=== PATIENT | female | born 1955 | race Caucasian/White ===

== ENCOUNTER → 2017-03-28 | Outpatient (CLI) | payer OTHER ==
[~2017-03-28] MED LIST: ACET-1256 PO; ACET1TAB84 PO; AMOXPOW3; ATEN-173 PO; DIPH-437 PO; ESTRING; MULT-506 PO; SIMV10TA2 PO
--- NOTE | 2017-03-28 16:42 | MAMMOGRAPHY REPORT ---
BILATERAL DIGITAL SCREENING MAMMOGRAM WITH CAD: 03/28/2017 CLINICAL HISTORY: Routine screening. Patient has no complaints. TECHNIQUE: Current study was also evaluated with a Computer Aided Detection (CAD) system. Bilatera l CC and MLO views were obtained. COMPARISON: Comparison is made to exams dated: 03/22/2016 mammogram, 03/17/2015 mammogram, 03/15/2014 ma mmogram, 03/09/2013 mammogram, 03/03/2012 mammogram, and 02/28/2011 mammogram - [facility] enter. BREAST COMPOSITION: The tissue of both breasts is heterogeneously dense, which may obscure small ma sses. FINDINGS: No suspicious masses, calcifications, or areas of architectural distortion are noted in e ither breast. There has been no significant interval change compared to prior exams. Patchy bilater al asymmetries and scattered bilateral benign calcifications are not significantly changed. IMPRESSION: ACR BI-RADS CATEGORY 2: BENIGN There is no mammographic evidence of malignancy. A 1 year screening mammogram is recommended. The p atient will receive written notification of the results. Approximately 10% of breast cancers are not detected with mammography. A negative mammographic repor t should not delay biopsy if a clinically suggestive mass is present. Hue Rosenthal M.D. /:03/28/2017 16:20:28 Hand Leather Trimmer: Funmilayo LOYOLA)(Evelia), [facility] letter sent: Normal 1/2 BI-RADS Code: ACR BI-RADS Category 2: Benign
== END | disposition home or self-care (01) ==
LOC: C.MAMM 09:48
PROVIDERS: ATTEND Obstetrics & Gynecology
DX: Z12.31 Encounter for screening mammogram for malignant neoplasm of breast (principal)

== ENCOUNTER → 2017-05-06 | Outpatient (CLI) | payer OTHER | END | disposition home or self-care (01) | LOC: C.LABPVFM 10:35 | PROVIDERS: ATTEND Family Medicine | DX: N39.0 Urinary tract infection, site not specified (principal) ==

== ENCOUNTER → 2017-06-11 | Outpatient (CLI) | payer OTHER | END | disposition home or self-care (01) | LOC: C.LABPVFM 11:08 | PROVIDERS: ATTEND Nurse Practitioner | DX: N39.0 Urinary tract infection, site not specified (principal) ==

== ENCOUNTER → 2017-09-26 | Outpatient (CLI) | payer OTHER ==
[2017-09-26 13:22] LABS: ALT/SGPT 36 U/L (12-78); AST/SGOT 26 U/L (15-37); BLOOD UREA NITROGEN 12 mg/dl (7-18); BUN/CREATININE RATIO 15.2 (10-20); CALCIUM 9.1 mg/dl (8.5-10.1); CARBON DIOXIDE 24 mmol/L (21-32); CHLORIDE 109 mmol/L (98-107); CREATININE 0.79 mg/dl (0.60-1.20); GLUCOSE 96 mg/dl (70-99); SODIUM 142 mmol/L (136-145)
[2017-09-26 13:33] LABS: ALKALINE PHOSPHATASE 103 U/L (45-117); CHOLESTEROL 165 mg/dl (0-200); CHOLESTEROL/HDL RATIO 3.6; HDL CHOLESTEROL 46 mg/dl; LDL CHOLESTEROL CALCULATED 74 mg/dl; THYROID STIMULATING HORMONE 0.604 uIu/ml (0.300-4.500); TRIGLYCERIDES 227 mg/dl (0-150); VERY LOW DENSITY LIPOPROT CALC 45 mg/dl
== END | disposition home or self-care (01) ==
LOC: C.LABPVFM 08:24
PROVIDERS: ATTEND Family Medicine
DX: I10 Essential (primary) hypertension (principal); Z13.29 Encounter for screening for other suspected endocrine disorder; E78.5 Hyperlipidemia, unspecified

== ENCOUNTER → 2018-04-03 | Outpatient (CLI) | payer OTHER ==
--- NOTE | 2018-04-06 15:09 | MAMMOGRAPHY REPORT ---
BILATERAL DIGITAL SCREENING MAMMOGRAM TOMOSYNTHESIS WITH CAD: 04/03/2018 CLINICAL HISTORY: Routine screening. Patient has no complaints. TECHNIQUE: Breast tomosynthesis in addition to standard 2D mammography was performed. Current study was also evaluated with a Computer Aided Detection (CAD) system. COMPARISON: Comparison is made to exams dated: 03/28/2017 mammogram, 03/22/2016 mammogram, 03/[facility]/2015 [facility], 03/15/2014 mammogram, 03/09/2013 mammogram, and 03/03/2012 mammogram - [facility]. BREAST COMPOSITION: The tissue of both breasts is heterogeneously dense, which may obscure small mas ses. FINDINGS: No suspicious masses, calcifications, or areas of architectural distortion are noted in ei ther breast. There has been no significant interval change compared to prior exams. Scattered bilater al benign-appearing calcifications are not significantly changed. Bilateral asymmetries are stable. IMPRESSION: ACR BI-RADS CATEGORY 2: BENIGN There is no mammographic evidence of malignancy. A 1 year screening mammogram is recommended. The pa tient will receive written notification of the results. Approximately 10% of breast cancers are not detected with mammography. A negative mammographic report should not delay biopsy if a clinically suggestive mass is present. Hue Rosenthal M.D. /:04/04/2018 11:18:28 Die Barber: Funmilayo LOYOLA)(Evelia), [facility] letter sent: Normal 1/2 BI-RADS Code: ACR BI-RADS Category 2: Benign
== END | disposition home or self-care (01) ==
LOC: C.MAMM 09:21
PROVIDERS: ATTEND Obstetrics & Gynecology
DX: Z12.31 Encounter for screening mammogram for malignant neoplasm of breast (principal)

== ENCOUNTER 2025-08-17 14:22 | Observation (INO) ==
--- NOTE | 2025-08-17 15:09 | Emergency Department Note ---
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 She was there for preop testing and planning for surgery on her left foot when she developed significant increased pain to her right low back, right buttocks, and right hip. Patient describes having some mild discomfort in the hip and leg on the right since the beginning of July. She initially had been applying ice to that area but the seem to make it worse. She saw her PCP on 01 August and they recommended using heat and Aleve. They did x-rays of the hip which showed no loosening of hardware in the right hip replacement but there was moderate degenerative changes in the lumbar spine. Patient describes having history of a previous disc herniation. Patient did have her first appointment of physical therapy for the lumbar spine yesterday. Severe pain started suddenly today. Laboratory studies were performed here revealed no leukocytosis or anemia. Renal function and glucose were normal. Patient was medicated with IV Dilaudid, IV Zofran and IV Decadron. She went for MRI of the lumbar spine which showed findings at L3-L4 on the right which is most likely contributing to her symptoms. Patient was given another dose of IV Dilaudid but remains in severe pain, especially with movement. I discussed the case with the [facility] and they will evaluate for further inpatient care. Care/management discussed with: senior procurement manager and [facility] Triage Nursing notes: reviewed and agree with them. Vital Signs: reviewed and unremarkable Differential Diagnosis: Disc herniation, lumbar radiculopathy, loosening hardware to the right hip, cauda equina syndrome, claudication Diagnostics, independently interpreted by me: Imaging studies: MRI of the lumbar spine: As per [facility] HPI: 70 year old Female arrives for evaluation of right buttocks and hip pain . 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 She was there for preop testing and planning for surgery on her left foot when she developed significant increased pain to her right low back right buttocks and right hip. Patient describes having some mild discomfort in the hip and leg on the right since the beginning of July. She initially had been applying ice to that area but the seem to make it worse. She saw her PCP on 01 August and they recommended using heat and Aleve. They did x-rays of the hip which showed no loosening of hardware in the right hip replacement but there was moderate degenerative changes in the lumbar spine. She denies any loss of control of bowel or bladder. PAST MEDICAL HISTORY: See Below, PAST SURGICAL HISTORY: See Below, SOCIAL HISTORY: See Below, HOME MEDICATIONS: See list ALLERGIES: None VITALS: See Below PHYSICAL EXAMINATION: HEENT: Head - normocephalic and atraumatic. Pupils are equal, round, and reactive to light. Extraocular eye muscles are intact and sclera are anicteric. Nose - moist nasal mucosa without discharge. Mouth - moist buccal mucosa. Oropharynx is nonerythematous and there is no tonsillar exudate or edema noted. Neck: Supple; no JVD, nuchal rigidity, cervical lymphadenopathy, or auscultated bruits. Heart: Regular rate and rhythm. There is a normal S1 and S2 with no murmurs, clicks, or gallops appreciated. Lungs: Clear to auscultation bilaterally with no wheezes, rales, or rhonchi. Abdomen: Soft, completely nontender, nondistended, with good bowel sounds. There are no palpable pulsatile masses or hepatosplenomegaly. There is no guarding, rigidity, or rebound noted. Extremities: No evidence of cyanosis, clubbing, or edema. There are easily palpable peripheral pulses. Patient has significant reproducible discomfort over the right piriformis muscle/sciatic nerve. She also has some discomfort out into the lateral right hip. Neuro:The patient is awake and alert, oriented to day, time, and place. Muscle strength is 5/5 in all 4 extremities. The patient has equal telesales specialist strength and equal pedal push and pull. There are no cerebellar signs. emergency department treatment: IV Zofran, IV Dilaudid, IV Decadron, IV Dilaudid Emergency department course: The patient was evaluated and A-4-A. Complete history and physical was performed. IV lock was initiated labs are drawn as above. The patient was medicated with IV Zofran, IV Dilaudid and IV Decadron. She went for MRI of the lumbar spine. Upon returning from radiology, the patient still had severe pain, especially with movement of the right lower extremity. She was given a second dose of IV Dilaudid. I reviewed the results of the MRI with the patient. I discussed the case with the [facility] and they will evaluate for further inpatient care. Past Med/Surg History Problem List (Updated 08/18/25 @ 20:41 by Beverly Mccoy DO) Intractable pain (Acute) Lumbar radiculopathy, right (Acute) Lower back pain Dyspnea on exertion History of paroxysmal supraventricular tachycardia Benign hypertension Hyperlipidemia Right hip pain Bilateral lower extremity edema Porokeratosis Hammertoe of left foot Metatarsus adductus of left foot Arthritis, midfoot Pes planus of left foot Crossover toe deformity of left foot Pigmented skin lesion suspicious for malignant neoplasm Medical History (Updated 08/18/25 @ 20:41 by Beverly Mccoy DO) SVT (supraventricular tachycardia) Surgical History History of hip replacement Right-2003, Left-2005, Right hip cup redo-2007 Hx of tubal ligation 1987 Hx of section 1982 Hx of dilation and curettage 1970, 1979 Hx of appendectomy 1967 Family History Denies family history of Ovarian cancer Prostate cancer Myocardial infarction Breast cancer Colorectal cancer Social History Smoking Status: Never smoker Second Hand Exposure: No; Do You Dip or Chew Tobacco: No; Hx Alcohol Use: No Hx Substance Use: No Preferred Language: Beninese Communication Ability: Effective Visual Impairment: No Limitations Hearing Ability: Normal Access Director Required: No Beliefs That Will Affect Care: None marital status: Current Living Situation: Spouse current occupational status: retired How many Children do You have: 1 Feels Safe at Home: Yes Childhood Exposure to Second-Hand Smoke: Yes Diet: regular caffeine: Yes during the past year weight has: remained stable Dental Care, Regularly: Yes Physical Activity Frequency: Does not Exercise Seatbelt Use: always Sunscreen Use: No Do you think of yourself as: straight/heterosexual Sexual Activity: has been sexually active, but not for at least 12 months Gender Identity: Female Assistive Devices: Cane and Walker Allergies Allergies Allergy/AdvReac Type Severity Reaction Status Date / Time No Known Allergies Allergy Unknown Verified 08/17/25 17:57 Home Meds Home Medications Medication Instructions Recorded Confirmed amoxicillin 500 mg capsule 2,000 mg PO DIRECTED PRN PRIOR 10/11/19 08/17/25 TO DENTAL PROCEDURES multivit-iron 18 mg-folic acid 400 1 tab PO QAM 10/11/19 08/17/25 mcg-calcium 450 mg-minerals tablet (One Daily Women's) acetaminophen 650 mg 1,300 mg PO QAM 10/16/20 08/17/25 tablet,extended release naproxen sodium 220 mg tablet 220 mg PO Q12H 08/15/25 08/17/25 (Aleve) omega-3 fatty acids 1,000 mg 1,000 mg PO DAILY 08/17/25 08/17/25 capsule Previous Rx's Medication Instructions Recorded simvastatin 10 mg tablet 10 mg PO QDD #90 tabs 01/20/25 atenolol 25 mg tablet 25 mg PO QDD #90 tabs 07/22/25 Results & Data (ED) Vital Signs Vital Signs - 24 hr 08/17/25 21:00 Pulse Rate [Finger] 51 L Respiratory Rate 18 Blood Pressure [Left Arm] 176/88 H Blood Pressure Mean [Left Arm] 117 Pulse Oximetry 94 Oxygen Delivery Method Nasal Cannula Oxygen Flow Rate 2 Laboratory Data 08/18/25 04:37 08/18/25 04:37 Lab Results 08/17/25 Range/Units 15:15 WBC 6.57 (4.8-10.8) K/ul RBC 4.58 (4.20-5.40) M/uL Hgb 13.4 (12.0-16.0) g/dl Hct 39.8 (37.0-47.0) % MCV 86.9 (80.0-100.0) fL MCH 29.3 (25.0-34.0) pg MCHC 33.7 (32.0-36.0) g/dL RDW Std Deviation 40.5 (36.4-46.3) fL RDW Coeff of Armando 12.9 (11.5-14.5) % Plt Count 229 (130-400) K/uL MPV 10.3 (9.4-12.4) fL Immature Gran % (Auto) 0.2 % Neut % (Auto) 75.9 % Lymph % (Auto) 13.4 % Isabela % (Auto) 8.2 % Eos % (Auto) 2.0 % Baso % (Auto) 0.3 % Neut # (Auto) 4.99 (1.40-6.50) K/uL Lymph # (Auto) 0.88 L (1.20-3.40) K/uL Isabela # (Auto) 0.54 (0.11-0.59) K/uL Eos # (Auto) 0.13 (0.00-0.50) K/uL Baso # (Auto) 0.02 (0.00-0.20) K/uL Immature Gran # (Auto) 0.01 (0.01-0.20) K/uL Sodium 140 (136-145) mmol/L Potassium 4.1 (3.5-5.1) mmol/L Chloride 106 (98-107) mmol/L Carbon Dioxide 25 (21-32) mmol/L Anion Gap 9 (3-11) BUN 16 (6-23) mg/dl Creatinine 0.74 (0.6-1.2) mg/dl Est Cr Clr Drug Dosing 66.2 ml/min eGFR 85.91 BUN/Creatinine Ratio 21.6 H (10-20) Glucose 97 (70-99(Fasting)) mg/dl Calcium 9.8 (8.6-10.3) mg/dl Total Bilirubin 0.5 (0.2-1.0) mg/dl AST 25 (13-39) U/L ALT 24 (7-52) U/L Alkaline Phosphatase 81 (34-104) U/L Total Protein 7.1 (6.0-8.3) gm/dl Albumin 4.0 (3.4-5.0) gm/dl Globulin 3.1 (2.5-4.0) gm/dl Albumin/Globulin Ratio 1.3 (0.9-2) Administered Medications Discontinued Medications Dexamethasone (Dexamethasone Sod Inj 4 Mg/Ml Vial) 10 mg IV NOW STA Stop: 08/17/25 15:05 Last Admin: 08/17/25 15:27 Dose: 10 mg Documented By: POLA Enoxaparin Sodium (Enoxaparin Inj 40 Mg/0.4 Ml Syr) 40 mg SQ QAM TRUPTI Stop: 09/17/25 08:59 Last Admin: 08/18/25 08:44 Dose: 40 mg Documented By: ZULY Hydromorphone HCl (Hydromorphone Inj 0.5 Mg/0.5 Ml Syr) 0.5 mg IV NOW STA Stop: 08/17/25 15:05 Last Admin: 08/17/25 15:27 Dose: 0.5 mg Documented By: POLA Hydromorphone HCl (Hydromorphone Inj 0.5 Mg/0.5 Ml Syr) 0.5 mg IV NOW STA Stop: 08/17/25 16:31 Last Admin: 08/17/25 17:02 Dose: 0.5 mg Documented By: POLA Hydromorphone HCl (Hydromorphone Inj 0.5 Mg/0.5 Ml Syr) 0.5 mg IV NOW STA Stop: 08/17/25 20:19 Last Admin: 08/17/25 20:47 Dose: 0.5 mg Documented By: JONEL Acetaminophen (Ofirmev) 1,000 mg in 100 mls @ 400 mls/hr IV Q8H TRUPTI Stop: 08/21/25 01:29 Last Infusion: 08/18/25 09:22 Dose: Infused Documented By: Admin: 08/18/25 08:44 Dose: 400 mls/hr Documented By: Infusion: 08/18/25 02:22 Dose: Infused Documented By: Admin: 08/18/25 01:56 Dose: 400 mls/hr Documented By: SARKIS Lidocaine (Lidocaine 5% 1 Patch) 1 patch TD NOW STA Stop: 08/18/25 01:07 Last Admin: 08/18/25 02:09 Dose: Not Given Documented By: SARKIS Miscellaneous (Remove Lidoderm Patch) 1 each N/A DAILY@1300 TRUPTI Stop: 08/18/25 13:01 Last Admin: 08/18/25 13:50 Dose: Not Given Documented By: ZULY Ondansetron HCl (Ondansetron Inj 2 Mg/Ml 2 Ml Vial) 4 mg IV NOW STA Stop: 08/17/25 15:05 Last Admin: 08/17/25 15:27 Dose: 4 mg Documented By: POLA Discharge Plan Visit Data Chief Complaint: Hip Pain Stated Complaint: HIP & LEG PAIN ED Provider: Beverly Mccoy Discharge Problem: Lumbar radiculopathy, right, Intractable pain Patient Disposition: Admitted As Inpatient Condition: Serious Discharge Instructions Interventions: ED Discharge Assessment Last Done: 08/18/25 01:07
[2025-08-17] MEDS: DEXAMETHASONE SOD INJ 4 MG/ML VIAL IV STA (15:27)
[2025-08-17] MEDS: ONDANSETRON INJ 2 MG/ML 2 ML VIAL IV STA (15:27)
[2025-08-17] MEDS: HYDROmorphone INJ 0.5 MG/0.5 ML SYR IV STA ×3 (15:27→20:47)
[2025-08-17 15:35] LABS: Hematocrit (blood only) 39.8 % (37.0-47.0); Hemoglobin 13.4 g/dl (12.0-16.0); Immature Granulocytes # (auto) 0.01 K/uL (0.01-0.20); Immature Granulocytes % (auto) 0.2 %; Mean Corpuscular Hemoglobin 29.3 pg (25.0-34.0); Mean Corpuscular Volume 86.9 fL (80.0-100.0); Platelet Count 229 K/uL (130-400); RDW Standard Deviation 40.5 fL (36.4-46.3); Red Blood Count 4.58 M/uL (4.20-5.40); White Blood Count 6.57 K/ul (4.8-10.8)
[2025-08-17 15:49] LABS: Alanine Aminotransferase 24.0 U/L (7-52); Albumin Globulin Ratio 1.3 (0.9-2); Albumin Level 4.0 gm/dl (3.4-5.0); Alkaline Phosphatase 81.0 U/L (34-104); Anion Gap 9.0 (3-11); Bilirubin,Total 0.5 mg/dl (0.2-1.0); Blood Urea Nitrogen 16.0 mg/dl (6-23); Calcium 9.8 mg/dl (8.6-10.3); Carbon Dioxide 25.0 mmol/L (21-32); Chloride 106.0 mmol/L (98-107); Creatinine Clr Calc Pharmacy 66.2 ml/min; Globulin 3.1 gm/dl (2.5-4.0); Glucose 97.0 mg/dl (70-99(Fasting)); Potassium 4.1 mmol/L (3.5-5.1); Sodium 140.0 mmol/L (136-145); Total Protein 7.1 gm/dl (6.0-8.3)
--- NOTE | 2025-08-17 19:26 | Magnetic Resonance Report ---
Clinical History: Lower back pain Technique: Sagittal and axial T1 and T2-weighted magnetic resonance images were obtained of the lumbar spine without gadolinium contrast. Comparison is made to the radiographs dated 08/02/2025 Findings: There is mild scoliosis. No listhesis is seen. No definite focal osseous lesion is evident. No fracture is identified. There is no definite sign of infection. There is no sign of acute ligamentous injury. The conus medullaris appears normal, terminating at the level of T12-L1. At L1-L2, there is a mild disc bulge with slight encroachment upon the left neural foramen. There is no spinal stenosis or clear nerve root compression. At L2-L3, there is a disc bulge with mild left neural foramen narrowing. There is no spinal stenosis or clear nerve root compression. At L3-L4, there is a disc bulge that compresses the anterior thecal sac. There is no spinal stenosis or compression of the traversing nerve roots. There is facet osteoarthritis. There is right greater than left neural foramen narrowing that may affect the right L3 nerve root At L4-L5, there is a disc bulge without spinal stenosis. There is facet osteoarthritis. There is mild left and minimal right neural foramen narrowing At L5-S1, there is a disc bulge without spinal stenosis. There is facet osteoarthritis. There is mild bilateral neural foramen narrowing Impression: 1. Mild scoliosis 2. Lumbar disc bulges without spinal stenosis 3. Right L3-4 neural foramen narrowing that may affect the right L3 nerve root. Less severe neural foramen narrowing is seen at other levels 4. Facet osteoarthritis from L3-4 through L5-S1 Electronically signed by Dave Bettencourt 08-17-2025 7:26 PM
--- NOTE | 2025-08-17 21:46 | History & Physical Report ---
Date of Service August 17, 2025 History of Present Illness Primary Care Provider: Tia Perez MD Allergies Allergy/AdvReac Type Severity Reaction Status Date / Time No Known Allergies Allergy Unknown Verified 08/17/25 17:57 Home Medications Medication Instructions Recorded Confirmed Type amoxicillin 500 mg capsule 2,000 mg PO DIRECTED PRN PRIOR 10/11/19 08/17/25 History TO DENTAL PROCEDURES multivit-iron 18 mg-folic acid 400 1 tab PO QAM 10/11/19 08/17/25 History mcg-calcium 450 mg-minerals tablet (One Daily Women's) acetaminophen 650 mg 1,300 mg PO QAM 10/16/20 08/17/25 History tablet,extended release simvastatin 10 mg tablet 10 mg PO QDD #90 tabs 01/20/25 08/17/25 Rx atenolol 25 mg tablet 25 mg PO QDD #90 tabs 07/22/25 08/17/25 Rx naproxen sodium 220 mg tablet 220 mg PO Q12H 08/15/25 08/17/25 History (Aleve) omega-3 fatty acids 1,000 mg 1,000 mg PO DAILY 08/17/25 08/17/25 History capsule Past Med/Surg History Problem List Encounter for immunization Encounter for pre-operative examination Lower back pain Right hip pain Urinary symptom or sign Dyspnea on exertion Bilateral lower extremity edema Pain in left foot Porokeratosis Hammertoe of left foot Metatarsus adductus of left foot Arthritis, midfoot Pes planus of left foot Crossover toe deformity of left foot Right shoulder pain Pigmented skin lesion suspicious for malignant neoplasm Non-healing skin lesion Encounter for examination following treatment at hospital Routine health maintenance Hyperlipidemia Benign hypertension SVT (supraventricular tachycardia) (Acute) Cough Hives Surgical History History of hip replacement Hx of tubal ligation Hx of section Hx of dilation and curettage Hx of appendectomy Family History Denies family history of Ovarian cancer Prostate cancer Myocardial infarction Breast cancer Colorectal cancer Social History Smoking Status: Never smoker Second Hand Exposure: No; Do You Dip or Chew Tobacco: No; Hx Alcohol Use: No Hx Substance Use: No Preferred Language: Italian Communication Ability: Effective Visual Impairment: No Limitations Hearing Ability: Normal Animal Husbandry Manager Required: No Beliefs That Will Affect Care: None marital status: Current Living Situation: Spouse current occupational status: retired How many Children do You have: 1 Feels Safe at Home: Yes Childhood Exposure to Second-Hand Smoke: Yes Diet: regular caffeine: Yes during the past year weight has: remained stable Dental Care, Regularly: Yes Physical Activity Frequency: Does not Exercise Seatbelt Use: always Sunscreen Use: No Do you think of yourself as: straight/heterosexual Sexual Activity: has been sexually active, but not for at least 12 months Gender Identity: Female Assistive Devices: Glasses Results & Data Results & Data Vital Signs (Past 12 Hours) Vital Signs Temp Pulse Pulse Resp BP BP Pulse Ox 08/17/25 21:00 51 L 18 176/88 H 94 08/17/25 19:30 69 20 179/80 H 95 08/17/25 19:16 55 L 08/17/25 18:03 53 L 22 194/79 H 93 08/17/25 16:13 58 L 14 164/77 H 95 08/17/25 15:26 56 L 18 208/86 H 95 08/17/25 14:41 36.7 C 64 16 200/91 H 97 O2 Del Method O2 Flow Rate 08/17/25 21:00 Nasal Cannula 2 08/17/25 19:30 08/17/25 19:16 08/17/25 18:03 Room Air 08/17/25 16:13 Room Air 08/17/25 15:26 Room Air 08/17/25 14:41 Room Air PG Care Time/CCT Total # of Minutes Spent Total Time Spent with Patient: Total time spent is greater than 50% in coordination of care (as documented) at patient's floor/unit and/or counseling patient: Coding
--- NOTE | 2025-08-17 22:07 | History & Physical Report ---
Date of Service August 17, 2025 Assessment & Plan (1) Lower back pain: (2) History of hip replacement: (3) HTN (hypertension): (4) SVT (supraventricular tachycardia): Plan Mrs. Boateng is a 70yo lady with PMH of HTN, HLD, and h/o SVT who presents to the hospital on 08/17 for excruciating back pain. She is currently being admitted to observation for pain management of lower back pain. #Low Back Pain #h/o herniated disc #h/o Sciatica Pain likely secondary to sciatic nerve pain vs disc herniation vs muscular strain. MRI of back: mild scoliosis and lumbar disc bulges without spinal stenosis. Straight leg test to 0 degrees. -scheduled Tylenol 1000mg q8hrs for pain relief -IV Toradol 15mg q6hrs prn for mild to moderate or breakthrough pain (0-6) -IV Dilaudid 0.5mg q6hrs prn for severe or breakthrough (7-10) -Heat application prn -Lidocaine patch 12hrs on, 12hrs off -PT/OT evaluation #Bradycardia #h/o SVT HRs at admission in 50s, which appears to be baseline. On atenolol at home. -stable, will monitor -continue Atenolol with holding parameters #HLD -continue simvastatin 10mg daily #HTN -not on at home medications -stable, will monitor Dispo: observation DVT Prophylaxis: Lovenox 40mg daily Diet: Heart Healthy Code Status: Conditional, pt has advanced directives and will have bring in for hospital records History of Present Illness Primary Care Provider: Tia Perez MD Mrs. Boateng is a 70yo lady with PMH of HTN, HLD, and h/o SVT who presents to the hospital on 08/17 for excruciating back pain. The pt was apparently well until one month ago when she started noticing lower back pain that felt similar to her previous herniated disc pain. She initially treated the pain with ice packs without relief. She saw her PCP who advised PT, heat, and Naproxen as needed. The pain became progressively worse and yesterday she had her first PT appointment which cause some expected discomfort. Today, at her Bone Drier appointment, she struggled to stand and was unable to ambulate and described the pain as "unbearable" which prompted her to come to the ED. She describes the right sided lower back pain as dull/achy, rated 10/10, radiating down to her right ankle, aggravated with movement and relieved with Aleve, heating pads, and leaning forward. She describes leaning on a cart in [facility] last week to relief her pain while shopping. In the ED, her pain was managed with Dilaudid with relief. She denies bowel or bladder dysfunction. Denies fever, chills, SOB, CP, N/V/C/D, abdominal pain, and complaints. Allergies Allergy/AdvReac Type Severity Reaction Status Date / Time No Known Allergies Allergy Unknown Verified 08/17/25 17:57 Home Medications Medication Instructions Recorded Confirmed Type amoxicillin 500 mg capsule 2,000 mg PO DIRECTED PRN PRIOR 10/11/19 08/17/25 History TO DENTAL PROCEDURES multivit-iron 18 mg-folic acid 400 1 tab PO QAM 10/11/19 08/17/25 History mcg-calcium 450 mg-minerals tablet (One Daily Women's) acetaminophen 650 mg 1,300 mg PO QAM 10/16/20 08/17/25 History tablet,extended release simvastatin 10 mg tablet 10 mg PO QDD #90 tabs 01/20/25 08/17/25 Rx atenolol 25 mg tablet 25 mg PO QDD #90 tabs 07/22/25 08/17/25 Rx naproxen sodium 220 mg tablet 220 mg PO Q12H 08/15/25 08/17/25 History (Aleve) omega-3 fatty acids 1,000 mg 1,000 mg PO DAILY 08/17/25 08/17/25 History capsule Past Med/Surg History Problem List HTN (hypertension) Encounter for immunization Encounter for pre-operative examination Lower back pain Right hip pain Urinary symptom or sign Dyspnea on exertion Bilateral lower extremity edema Pain in left foot Porokeratosis Hammertoe of left foot Metatarsus adductus of left foot Arthritis, midfoot Pes planus of left foot Crossover toe deformity of left foot Right shoulder pain Pigmented skin lesion suspicious for malignant neoplasm Non-healing skin lesion Encounter for examination following treatment at hospital Routine health maintenance Hyperlipidemia Benign hypertension SVT (supraventricular tachycardia) (Acute) Cough Hives Surgical History History of hip replacement Right-2003, Left-2005, Right hip cup redo-2007 Hx of tubal ligation 1987 Hx of section 1982 Hx of dilation and curettage 1970, 1979 Hx of appendectomy 1967 Family History Denies family history of Ovarian cancer Prostate cancer Myocardial infarction Breast cancer Colorectal cancer Social History Smoking Status: Never smoker Second Hand Exposure: No; Do You Dip or Chew Tobacco: No; Hx Alcohol Use: No Hx Substance Use: No Preferred Language: Finnish Communication Ability: Effective Visual Impairment: No Limitations Hearing Ability: Normal Wireless Manager Required: No Beliefs That Will Affect Care: None marital status: Current Living Situation: Spouse current occupational status: retired How many Children do You have: 1 Feels Safe at Home: Yes Safety Concerns: Feels Safe At This Time Childhood Exposure to Second-Hand Smoke: Yes Diet: regular caffeine: Yes during the past year weight has: remained stable Dental Care, Regularly: Yes Physical Activity Frequency: Does not Exercise Seatbelt Use: always Sunscreen Use: No Do you think of yourself as: straight/heterosexual Sexual Activity: has been sexually active, but not for at least 12 months Gender Identity: Female Assistive Devices: Cane, Glasses and Walker Review of Systems Review of Systems: per HPI Physical Exam Physical Exam: GA: well groomed, well nourished in no apparent distress. AAOx3 HEENT: head normocephalic, atraumatic. EOMI RESP: vesicular breath sounds b/l. No wheezes, rhonchi, or rales CARDIOVASCULAR: S1 and S2 heard. No murmurs, rubs, or gallops. Radial pulses 2+ b/l bradycardic, regular rhythm GI: Normoactive bowel sounds, no tenderness or masses felt to palpation MSK: exam limited due to pt stiffness and noncompliance SKIN: warm, dry, no edema PSYCH: appropriate mood and affect NEURO: no focal deficits. speech fluent. Strength in Left LE 5/5. Right deferred due to pain. Straight Leg test: 0 degrees Results & Data Results & Data Vital Signs (Past 12 Hours) Vital Signs Temp Pulse Pulse Resp BP BP Pulse Ox 08/17/25 21:00 51 L 18 176/88 H 94 08/17/25 19:30 69 20 179/80 H 95 08/17/25 19:16 55 L 08/17/25 18:03 53 L 22 194/79 H 93 08/17/25 16:13 58 L 14 164/77 H 95 08/17/25 15:26 56 L 18 208/86 H 95 08/17/25 14:41 36.7 C 64 16 200/91 H 97 O2 Del Method O2 Flow Rate 08/17/25 21:00 Nasal Cannula 2 08/17/25 19:30 08/17/25 19:16 08/17/25 18:03 Room Air 08/17/25 16:13 Room Air 08/17/25 15:26 Room Air 08/17/25 14:41 Room Air Diagnostic Findings Lumbar Spine MRI 08/17/25 15:03 Clinical History: Lower back pain Technique: Sagittal and axial T1 and T2-weighted magnetic resonance images were obtained of the lumbar spine without gadolinium contrast. Comparison is made to the radiographs dated 08/02/2025 Findings: There is mild scoliosis. No listhesis is seen. No definite focal osseous lesion is evident. No fracture is identified. There is no definite sign of infection. There is no sign of acute ligamentous injury. The conus medullaris appears normal, terminating at the level of T12-L1. At L1-L2, there is a mild disc bulge with slight encroachment upon the left neural foramen. There is no spinal stenosis or clear nerve root compression. At L2-L3, there is a disc bulge with mild left neural foramen narrowing. There is no spinal stenosis or clear nerve root compression. At L3-L4, there is a disc bulge that compresses the anterior thecal sac. There is no spinal stenosis or compression of the traversing nerve roots. There is facet osteoarthritis. There is right greater than left neural foramen narrowing that may affect the right L3 nerve root At L4-L5, there is a disc bulge without spinal stenosis. There is facet osteoarthritis. There is mild left and minimal right neural foramen narrowing At L5-S1, there is a disc bulge without spinal stenosis. There is facet osteoarthritis. There is mild bilateral neural foramen narrowing Impression: 1. Mild scoliosis 2. Lumbar disc bulges without spinal stenosis 3. Right L3-4 neural foramen narrowing that may affect the right L3 nerve root. Less severe neural foramen narrowing is seen at other levels 4. Facet osteoarthritis from L3-4 through L5-S1 Electronically signed by Dave Bettencourt 08-17-2025 7:26 PM Supervising Physician Co-Signing Physician Notes patient seen and examined, chart reviewed, case discussed with Dr. Galindo and agree with assessment plan as documented above. In brief, patient is 70-year-old female with history of hypertension, hyperlipidemia and SVT presenting with severe, acute back pain secondary to herniated disc. Patient afebrile, hypertensive Moist mucous membranes, neck supple + S1, S2, regular, bradycardic Lungs CTA Abdomen soft, nontender, nondistended Extremities warm, well-perfused Muscle strength intact, sensation intact Labs and images reviewed Assessment/plan - intractable back pain secondary to herniated disc Pain control with Tylenol, Toradol,Dilaudid, heat, Lidoderm PT/OT evaluation Patient with markedly elevated blood pressure in the ER. Presently 198/85. Upon review of prior blood pressure results she tends to always be hypertensive. Would consider initiating blood pressure management in this patient. Consider calcium channel cristóbal or ARB prior to discharge? Remainder as above Resident Activity Tracking Resident Involvement: Resident Care Provided Care Provided: Adult Hospital Medicine (1) Lower back pain Back pain laterality: right Chronicity: chronic Sciatica presence: without sciatica Qualified Code(s): M54.50 - Low back pain, unspecified; G89.29 - Other chronic pain (2) History of hip replacement Laterality: unspecified laterality Qualified Code(s): Z96.649 - Presence of unspecified artificial hip joint (3) HTN (hypertension) Hypertension type: unspecified Qualified Code(s): I10 - Essential (primary) hypertension
[2025-08-18] MEDS ORDERED: POLYETHYLENE (MIRALAX) 17 GM PACK PO PRN (01:06)
[2025-08-18] MEDS ORDERED: MELATONIN 3 MG TAB PO PRN (01:06)
[2025-08-18] MEDS ORDERED: HYDROmorphone INJ 0.5 MG/0.5 ML SYR IV PRN (01:06)
[2025-08-18] MEDS ORDERED: KETOROLAC TROMETHAMINE 15 MG/ML VIAL IV PRN (01:06)
[2025-08-18 01:29] VITALS: TEMP 98.2
[2025-08-18] MEDS: ACETAMINOPHEN 1,000 MG/100 ML VIAL IV SCH (01:56)
[2025-08-18] MEDS: LIDOCAINE 5% 1 PATCH TD STA (02:09)
--- NOTE | 2025-08-18 03:33 | Billing Data ---
Date of Service August 17, 2025 Coding Level of Care Code 92182 INT INP/OBS CARE
[2025-08-18 05:08] LABS: Hematocrit (blood only) 43.3 % (37.0-47.0); Hemoglobin 15.0 g/dl (12.0-16.0); Mean Corpuscular Hemoglobin 30.1 pg (25.0-34.0); Mean Corpuscular Volume 86.8 fL (80.0-100.0); Platelet Count 245 K/uL (130-400); RDW Standard Deviation 39.7 fL (36.4-46.3); Red Blood Count 4.99 M/uL (4.20-5.40); White Blood Count 8.59 K/ul (4.8-10.8)
[2025-08-18 05:23] LABS: Anion Gap 10.0 (3-11); Blood Urea Nitrogen 18.0 mg/dl (6-23); Calcium 9.8 mg/dl (8.6-10.3); Carbon Dioxide 23.0 mmol/L (21-32); Chloride 105.0 mmol/L (98-107); Creatinine Clr Calc Pharmacy 74.3 ml/min; Potassium 4.2 mmol/L (3.5-5.1); Sodium 138.0 mmol/L (136-145)
[2025-08-18 05:33] LABS: Immature Granulocytes # (auto) 0.02 K/uL (0.01-0.20); Immature Granulocytes % (auto) 0.2 %; RBC Morphology Unremarkable
[2025-08-18 06:07] VITALS: O2SAT 95
--- NOTE | 2025-08-18 07:20 | Hospitalist Progress Note ---
Date of Service August 18, 2025 Assessment & Plan (1) Lower back pain: (2) History of hip replacement: (3) SVT (supraventricular tachycardia): Plan Mrs. Boateng is a 70yo lady with PMH of HTN, HLD, and h/o SVT who presents to the hospital on 08/17 for excruciating back pain. She is currently being admitted to observation for pain management of lower back pain. #Low Back Pain #h/o herniated disc #h/o Sciatica Pain likely secondary to sciatic nerve pain vs disc herniation vs muscular strain. MRI of back: mild scoliosis and lumbar disc bulges without spinal stenosis. Straight leg test to 0 degrees. -scheduled Tylenol 1000mg q8hrs for pain relief -IV Toradol 15mg q6hrs prn for mild to moderate or breakthrough pain (0-6) -IV Dilaudid 0.5mg q6hrs prn for severe or breakthrough (7-10) -Heat application prn -Lidocaine patch 12hrs on, 12hrs off -PT/OT evaluation #Bradycardia #h/o SVT HRs at admission in 50s, which appears to be baseline. On atenolol at home. -stable, will monitor -hold atenolol for now #HLD -continue simvastatin 10mg daily #HTN -not on at home medications -stable, will monitor Dispo: observation DVT Prophylaxis: Lovenox 40mg daily Diet: Heart Healthy Code Status: Conditional, pt has advanced directives and will have bring in for hospital records Admission and Anticipated Discharge Date Admission Date: August 17, 2025 Review of Systems Review of Systems: per HPI Physical Exam Physical Exam: GA: well groomed, well nourished in no apparent distress. AAOx3 HEENT: head normocephalic, atraumatic. EOMI RESP: vesicular breath sounds b/l. No wheezes, rhonchi, or rales CARDIOVASCULAR: S1 and S2 heard. No murmurs, rubs, or gallops. Radial pulses 2+ b/l bradycardic, regular rhythm GI: Normoactive bowel sounds, no tenderness or masses felt to palpation MSK: exam limited due to pt stiffness and noncompliance SKIN: warm, dry, no edema PSYCH: appropriate mood and affect NEURO: no focal deficits. speech fluent. Strength in Left LE 5/5. Right deferred due to pain. Straight Leg test: 0 degrees Results & Data Results & Data Vital Signs (Past 12 Hours) Vital Signs Temp Pulse Pulse Resp BP Pulse Ox O2 Del Method 08/18/25 07:08 50 L 08/18/25 06:06 45 L 18 188/72 H 95 Nasal Cannula 08/18/25 01:26 36.8 C 08/18/25 01:25 44 L 16 198/85 H 96 Room Air 08/18/25 00:28 48 L 18 186/80 H 95 Nasal Cannula 08/17/25 23:12 45 L 08/17/25 23:00 50 L 18 142/82 H 94 Nasal Cannula 08/17/25 21:00 51 L 18 176/88 H 94 Nasal Cannula 08/17/25 19:30 69 20 179/80 H 95 O2 Flow Rate 08/18/25 07:08 08/18/25 06:06 2 08/18/25 01:26 08/18/25 01:25 2 08/18/25 00:28 2 08/17/25 23:12 08/17/25 23:00 2 08/17/25 21:00 2 08/17/25 19:30 (1) Lower back pain Back pain laterality: right Chronicity: chronic Sciatica presence: without sciatica Qualified Code(s): M54.50 - Low back pain, unspecified; G89.29 - Other chronic pain (2) History of hip replacement Laterality: unspecified laterality Qualified Code(s): Z96.649 - Presence of unspecified artificial hip joint
[2025-08-18] MEDS: ENOXAPARIN INJ 40 MG/0.4 ML SYR SQ SCH (08:44)
[2025-08-18] MEDS: REMOVE LIDODERM PATCH SCH (13:50)
[2025-08-18 14:37] VITALS: PULSE 61; RESP 18
--- NOTE | 2025-08-18 14:58 | Discharge Summary ---
Date of Service August 18, 2025 Admission HPI Per Admitting Provider Mrs. Boateng is a 70yo lady with PMH of HTN, HLD, and h/o SVT who presents to the hospital on 08/17 for excruciating back pain. The pt was apparently well until one month ago when she started noticing lower back pain that felt similar to her previous herniated disc pain. She initially treated the pain with ice packs without relief. She saw her PCP who advised PT, heat, and Naproxen as needed. The pain became progressively worse and yesterday she had her first PT appointment which cause some expected discomfort. Today, at her Sack Filler appointment, she struggled to stand and was unable to ambulate and described the pain as "unbearable" which prompted her to come to the ED. She describes the right sided lower back pain as dull/achy, rated 10/10, radiating down to her right ankle, aggravated with movement and relieved with Aleve, heating pads, and leaning forward. She describes leaning on a cart in [facility] last week to relief her pain while shopping. In the ED, her pain was managed with Dilaudid with relief. She denies bowel or bladder dysfunction. Denies fever, chills, SOB, CP, N/V/C/D, abdominal pain, and complaints. Principal Diagnosis Intractable back pain Discharge Exam GA: well groomed, well nourished in no apparent distress. A&Ox3 HEENT: head normocephalic, atraumatic. EOMI RESP: vesicular breath sounds b/l. No wheezes, rhonchi, or rales CARDIOVASCULAR: S1 and S2 heard. No murmurs, rubs, or gallops. Radial pulses 2+ b/l bradycardic, regular rhythm GI: Normoactive bowel sounds, no tenderness or masses felt to palpation MSK: UE's grossly 5/5, LE's grossly 4/5 SKIN: warm, dry, no edema PSYCH: appropriate mood and affect NEURO: no focal deficits. speech fluent. Moving all 4 extremities independently against gravity Discharge Data Allergies Allergy/AdvReac Type Severity Reaction Status Date / Time No Known Allergies Allergy Unknown Verified 08/17/25 17:57 Consultations 08/17/25 20:25 ED Decision to Admit Stat Ordered Studies 08/17/25 15:03 MRI Lumbar Spine [MR lumbar spine wo con] Stat Hospital Course (1) Lower back pain: (2) History of hip replacement: Plan Mrs. Boateng is a 70yo lady with PMH of HTN, HLD, and h/o SVT who presents to the hospital on 08/17 for excruciating back pain. She is currently being admitted to observation for pain management of lower back pain. #Low Back Pain #h/o herniated disc #h/o Sciatica Pain likely secondary to sciatic nerve pain vs disc herniation vs muscular strain. MRI of back: mild scoliosis and lumbar disc bulges without spinal stenosis. Pt reporting resolution of pain this morning. Will work with PT/OT today for recommendations for discharge -scheduled Tylenol 1000mg q8hrs for pain relief -Received IV Toradol 15mg q6hrs prn for mild to moderate or breakthrough pain (0-6) -Received IV Dilaudid 0.5mg q6hrs prn for severe or breakthrough (7-10) -Heat application prn -Lidocaine patch 12hrs on, 12hrs off -PT/OT recommend home with IADL assist from and use of FWW for then next 24-48 hours. Resume outpatient PT services. #Bradycardia #h/o SVT HRs in 50s-60s, which appears to be baseline. -stable, will monitor -Continue atenolol #HLD -continue simvastatin 10mg daily #HTN -not on at home medications -stable, will monitor Dispo: observation DVT Prophylaxis: Lovenox 40mg daily Diet: Heart Healthy Code Status: Conditional, pt has advanced directives and will have bring in for hospital records Total Time Total Time Spent Total Time Spent (In Minutes): per attending physician's attestation Discharge Plan Discharge Items Patient Disposition: Home - Self-Care Reason For Visit: BACK PAIN Discharge Diagnosis: Intractable back pain Activity: Resume your previous activity Non-emergency contact: Primary Care Provider Call non-emergency contact if: your symptoms worsen Follow-up/Referrals: Tia Perez MD [Primary Care Provider] - Diet: Heart Healthy Addtl Attending Provider Instructions: You were admitted for observation due to intractable low back and right leg sciatic pain. You were given IV pain medications which reduced your pain. Following evaluation from PT and OT they recommended for you to return home with use of walker initially for ambulation. It is also recommended that you continue PT on an outpatient basis to control low back and right leg symptoms. Please resume your home medications Please follow up with your PCP in 7-10 days. Thank you for allowing us to be a part of your health care team. Pending Studies at Discharge: No Stand-Alone Forms: My [facility], Smoking Cessation Medications and DC Order Prescriptions: Continued simvastatin 10 mg tablet 10 mg PO QDD Qty: 90 1RF atenolol 25 mg tablet 25 mg PO QDD Qty: 90 1RF One Daily Women's 18 mg iron-400 mcg-450 mg Ca tablet 1 tab PO QAM amoxicillin 500 mg capsule 2,000 mg PO DIRECTED PRN (Reason: PRIOR TO DENTAL PROCEDURES) Rx Instructions: 2,000 mg PO 1 hour prior to dental procedure; acetaminophen 650 mg tablet extended release 1,300 mg PO QAM naproxen sodium [Aleve] 220 mg tablet 220 mg PO Q12H omega-3 fatty acids 1,000 mg Capsule 1,000 mg PO DAILY Discharge Orders: Discharge Order (Routine); Ordered 08/18/25 Ordered By: Lexy Salguero Admission Data Admit Date/Time: 08/17/25 22:55 Attending Provider: Ryan Hernandez Admit Provider: Ryan Galindo Primary Care Provider: Tia Perez Other Providers: Nereyda Olivares Supervising Physician Co-Signing Physician Notes Attending attestation Pt seen and examined in concert with Dr. Salguero. In agreement with the documented findings as noted in the resident documentation with any exceptions or additions as noted here. Reports pain well controlled without acute medications at time of evaluation. Tolerated PT well and interested in return home. VS as noted. On examination, S1/S2 nl RRR no MCG. CTAB. Abd NT/ND BS+ve Low back pain in the setting of h/o herniated disc and sciatic pain - return to baseline following pain control measures as noted. PT/OT recommending outpatient PT follow up. Reviewed options, okay to return home to baseline care with precautions for worsening/changing or recurrent sx. Else see resident documentation as noted. Total attending physician time spent with this patient's care on the day of discharge: 35 minutes.
[2025-08-18 16:19] VITALS: BP 178/82
[2025-08-18] MEDS ORDERED: ATENOLOL 25 MG TABLET PO SCH (16:30)
[2025-08-18] MEDS ORDERED: SIMVASTATIN 10 MG TAB PO SCH (16:30)
== END 2025-08-18 16:19 | disposition home or self-care (01) ==
LOC: EDINP 14:22 → ED 14:22 → SUATTDRO 22:55 → EDINP 08-18 01:07